=== PATIENT | male | born 1945 | race Caucasian/White ===

== ENCOUNTER 2019-10-14 15:49 | Emergency (ER) | payer MEDICARE, OTHER ==
[~2019-10-14] VITALS: Ht 172.7 cm; Wt 99.4 kg
[2019-10-14] MEDS ORDERED: BYSTOLIC5 MG PO (16:18)
[2019-10-14] MEDS ORDERED: PLAVIX75 MG PO (16:19)
[2019-10-14] MEDS ORDERED: SIMVASTATIN10 MG PO (16:19)
[2019-10-14] MEDS ORDERED: ASPIRIN81 MG PO (16:19)
[2019-10-14] MEDS ORDERED: DOXYCYCL HYC100 MG PO (17:28)
[2019-10-14 17:38] VITALS: BP 165/60
== END 2019-10-14 17:38 | disposition home or self-care (01) ==
LOC: ED 15:49
DX: S61.032A Puncture wound without foreign body of left thumb without damage to nail, initial encounter (principal); I10 Essential (primary) hypertension; I25.10 Atherosclerotic heart disease of native coronary artery without angina pectoris; W56.52XA Struck by other fish, initial encounter; Z95.5 Presence of coronary angioplasty implant and graft